=== PATIENT | male | born 1995 | race Caucasian/White ===

== ENCOUNTER 2025-07-16 17:46 | Emergency (ER) | payer MEDICAID ==
[~2025-07-16] VITALS: Ht 177.8 cm; Wt 55.0 kg
[2025-07-16] MEDS: HALOPERIDOL LACTATE 5MG/ML VIAL IM ONE (18:30)
[2025-07-16] MEDS: DIPHENHYDRAMINE 50MG/ML VIAL IM ONE (18:30)
[2025-07-16] MEDS: LORAZEPAM 2MG/ML UD SYRINGE IM NR (18:30)
[2025-07-16 19:15] VITALS: O2SAT 100
[2025-07-16 20:44] LABS: BASOPHILS % 0.4 % (0.0-2.0); EOSINOPHILS % 0.0 % (0.0-5.0); HEMATOCRIT. 34.3 % (42.0-52.0); HEMOGLOBIN. 11.6 g/dL (14.0-18.0); LYMPHOCYTES % 20.0 % (20.0-50.0); MEAN PLATELET VOLUME 9.6 fl (7.4-10.4); MONOCYTES % 8.8 % (2.0-8.0); NEUTROPHILS % 70.8 % (40.0-76.0); PLATELET 104 x1000/uL (130-400); RED BLOOD CELL COUNT 3.85 mill/uL (4.7-6.1); RED CELL DISTRIBUTION WIDTH 13.2 % (11.6-14.6)
[2025-07-16 21:03] LABS: CREATININE 0.8 mg/dL (0.6-1.3)
[2025-07-16 21:05] LABS: UREA NITROGEN BLOOD 14 mg/dL (9-23)
[2025-07-16 21:53] LABS: *AMPHETAMINES SCREEN URINE NEGATIVE (NEGATIVE); *BARBITURATES SCREEN URINE NEGATIVE (NEGATIVE); *BENZODIAZEPINES SCREEN URINE PRESUMPTIVE POSITIVE (NEGATIVE); *COCAINE SCREEN URINE NEGATIVE (NEGATIVE); CANNABINOID URINE SCREEN PRESUMPTIVE POSITIVE (NEGATIVE); ECSTASY MDMA SCREEN URINE NEGATIVE (NEGATIVE); METHADONE URINE SCREEN NEGATIVE (NEGATIVE); OPIATES URINE SCREEN NEGATIVE (NEGATIVE); PHENCYCLIDINE URINE SCREEN NEGATIVE (NEGATIVE)
[2025-07-17] MEDS: DIPHENHYDRAMINE 50MG/ML VIAL IM ONE (02:00)
[2025-07-17] MEDS: HALOPERIDOL LACTATE 5MG/ML VIAL IM ONE (02:00)
[2025-07-17] MEDS: LORAZEPAM 2MG/ML UD SYRINGE IM NR (02:15)
[2025-07-17 03:30] VITALS: BP 112/68; PULSE 110; RESP 16; TEMP 36.9; O2SAT 100
== END 2025-07-17 08:28 | disposition left against medical advice (07) ==
LOC: ER 17:46
DX: R46.2 Strange and inexplicable behavior (principal); Z20.822 Contact with and (suspected) exposure to COVID-19; Z79.899 Other long term (current) drug therapy
CPT/HCPCS: 80305; 80048; 80307; 80329; 80320; 85025; 36415; 93005; 96372 ×2; 99291; 87426; J1200 ×2; J1630 ×2; J2060 ×2; Z7610; G0480